=== PATIENT | female | born 1945 | race Caucasian/White ===

== ENCOUNTER → 2016-10-02 | Day surgery (SDC) | payer MEDICARE ==
[~2016-10-02] VITALS: Ht 160 cm; Wt 68.0 kg
[~2016-10-02] MED LIST: ACETAMINOPHEN/HYDROcodone 325 MG/5 MG TAB ONE; BUPIVACAINE/EPINEPHRINE 0.5% PF 30 ML VIAL ONE; FAMOTIDINE 20 MG/2 ML VIAL ONE; LACTATED RINGER'S 1000 ML INJ 1,000 ML ONE; LEVO.2 PO; LOVA40TA PO; METO50TA PO; MIDAZOLAM HCL 2 MG/2 ML VIAL ONE; MORPHINE SULFATE 8 MG/ML INJ ONE; OMEP20TA PO; ONDANSETRON HCL 4 MG/2 ML VIAL IV PUSH ONE; PROPOFOL 200 MG/20 ML AMP IV ONE; RESP: ALBUTEROL 2.5 MG/3 ML NEB (PRN) ONE; TRAM50TA PO; TRIAMCINOLONE ACETONIDE 40 MG/ML VIAL ONE; VENTAER INH
[2016-10-02 08:14] VITALS: BP 181/101; PULSE 73; RESP 18; TEMP 98; O2SAT 98
[2016-10-02 14:10] VITALS: BP 126/78; PULSE 80; RESP 16; TEMP 98.1; O2SAT 96
--- NOTE | 2016-10-04 18:31 | MP ---
cc: CARLOS FISHER M.D. DATE OF SURGERY: 10/02/2016. PREOPERATIVE DIAGNOSIS: Tear, anterior horn lateral meniscus left knee joint. POSTOPERATIVE DIAGNOSIS: 1. Tear, anterior horn lateral meniscus. 2. Osteochondral lesions x2 medial femoral condyle. OPERATIVE PROCEDURE PERFORMED: 1. Arthroscopic chondroplasty, medial femoral condyle. 2. Subtotal lateral meniscectomy. SURGEON: Carlos Fisher MD. DESCRIPTION OF THE PROCEDURE IN DETAIL: The patient was placed on the operating table in the supine position. Adequate general anesthesia was administered by the anesthesiologist, Dr. Cash. The left knee was prepped and draped in the usual sterile fashion and a time-out was called and the patient's name, location and procedures were fully verified and confirmed. The Esmarch bandage was applied and a tourniquet was inflated to 300. An anterolateral portal was used for introduction of the scope and a systematic examination of the knee joint revealed two small sized osteochondral lesions of grade 1 to 2 on the distal femoral condyle, one of them in the area of weightbearing. The medial meniscus was intact. The patellofemoral joint was unremarkable and centralized and the suprapatellar pouch was unremarkable except for a superficial plica. The lateral compartment was entered and passing through to the area of the intercondylar fossa, we did note essentially full tearing of the anterior cruciate ligament with fraying proximal and distal with a midportion tear. The posterior cruciate appeared to be unremarkable. The lateral meniscus was torn as previously determined by MRI. Maximum changes were long of the anterior horn but there was fraying throughout the remainder of the lateral meniscus. The aggressive meniscal resector was placed into the lateral compartment and a subtotal lateral meniscectomy was performed. The anterior cruciate ligaments were correct and the anterior cruciate ligament was debrided. The medial compartment osteochondral lesions were then smoothed with the same power instrument doing a chondroplasty of the medial femoral condyle. A thorough irrigation of the joint was carried out followed by removal of all instruments. Two stab wounds were closed with simple suture of 3-0 nylon. An intra-articular injection of 10 mL of 0.5% Marcaine with epinephrine along with 1 mL of Kenalog was instilled within the knee joint. A bulky compression dressing was applied around the knee joint and the tourniquet was deflated after 20 minutes. Sponge count, needle count and instrument counts were reported correct x2 and the estimated blood loss was nil. The patient tolerated the procedure well and went to the recovery room in satisfactory condition. MD ALEX Justice/JANA /11:23 AM /6:25 PM
== END | disposition home or self-care (01) ==
LOC: PHSDC 07:15
PROVIDERS: ATTEND Orthopaedic Surgery
DX: S83.282A Other tear of lateral meniscus, current injury, left knee, initial encounter (principal); M25.862 Other specified joint disorders, left knee; I10 Essential (primary) hypertension; J45.909 Unspecified asthma, uncomplicated
CPT/HCPCS: 01400; 29881; 94640; J2250; J2270; J2405; J3010; J3301; J7120; J7613